=== PATIENT | female | born 1975 | race Caucasian/White ===

== ENCOUNTER → 2016-08-03 | Outpatient (CLI) | payer BC ==
[~2016-08-03] MED LIST: ACEB200C PO; CNC/36 PO; GLC/500 PO; METH5TAB4 PO; MULT-506 PO; OMEG10007 PO
[2016-08-03 09:58] LABS: CALCIUM 8.9 mg/dl (8.5-10.1)
[2016-08-03 10:04] LABS: AST/SGOT 18 U/L (15-37); BLOOD UREA NITROGEN 11 mg/dl (7-18); BUN/CREATININE RATIO 14.3 (10-20); CARBON DIOXIDE 27 mmol/L (21-32); CHLORIDE 107 mmol/L (98-107); CREATININE 0.76 mg/dl (0.60-1.20); GLUCOSE 100 mg/dl (70-99); POTASSIUM 4.1 mmol/L (3.5-5.1); SODIUM 142 mmol/L (136-145)
[2016-08-03 10:05] LABS: ALT/SGPT 43 U/L (12-78); CHOLESTEROL 195 mg/dl (0-200); TRIGLYCERIDES 176 mg/dl (0-150); VERY LOW DENSITY LIPOPROT CALC 35 mg/dl
[2016-08-03 10:09] LABS: ALKALINE PHOSPHATASE 103 U/L (45-117); CHOLESTEROL/HDL RATIO 5.6; HDL CHOLESTEROL 35 mg/dl; LDL CHOLESTEROL CALCULATED 125 mg/dl
== END | disposition home or self-care (01) ==
LOC: C.LAB 07:08
PROVIDERS: ATTEND Nurse Practitioner Family
DX: E78.00 Pure hypercholesterolemia, unspecified (principal); F98.8 Other specified behavioral and emotional disorders with onset usually occurring in childhood and adolescence; I10 Essential (primary) hypertension